=== PATIENT | female | born 1995 | race Caucasian/White ===

== ENCOUNTER 2018-05-18 19:21 | Emergency (ER) | payer MEDICAID ==
[~2018-05-18] VITALS: Ht 167.6 cm; Wt 95.0 kg
[2018-05-18] MEDS ORDERED: ACETAMINOPHEN 325MG TABLET PO ONE (19:45)
[2018-05-18 20:23] LABS: BASOPHILS % 0.2 % (0.0-2.0); EOSINOPHILS % 0.4 % (0.0-5.0); HEMATOCRIT. 37.2 % (36.0-48.0); HEMOGLOBIN. 12.5 g/dL (12.0-16.0); LYMPHOCYTES % 16.2 % (20.0-50.0); MEAN CORPUSCULAR HEMOGLOBIN 29.9 pg (28.0-32.0); MEAN CORPUSCULAR VOLUME 88.9 fL (81.0-99.0); MEAN PLATELET VOLUME 8.4 fl (7.4-10.4); MONOCYTES % 5.6 % (2.0-8.0); NEUTROPHILS % 77.6 % (40.0-76.0); PLATELET 238 x1000/uL (130-400); RED BLOOD CELL COUNT 4.18 mill/uL (4.2-5.4); RED CELL DISTRIBUTION WIDTH 13.8 % (11.6-14.6)
[2018-05-18 20:26] LABS: CHLORIDE 108 mEq/L (98-107); PROTHROMBIN TIME 10.2 sec (9.1-11.1)
[2018-05-18 22:23] VITALS: BP 107/61
== END 2018-05-18 22:53 | disposition home or self-care (01) ==
LOC: ER 19:37
DX: O99.89 Other specified diseases and conditions complicating pregnancy, childbirth and the puerperium (principal); M54.2 Cervicalgia; O26.892 Other specified pregnancy related conditions, second trimester; R10.9 Unspecified abdominal pain; Z3A.16 16 weeks gestation of pregnancy; V49.49XA Driver injured in collision with other motor vehicles in traffic accident, initial encounter; Y93.89 Activity, other specified; Y92.488 Other paved roadways as the place of occurrence of the external cause
CPT/HCPCS: 36415; 76801; 80053; 83690; 85025; 85610; 86850; 86900; 99285